=== PATIENT | male | born 1970 | race Caucasian/White ===

== ENCOUNTER 2019-02-01 23:13 | Emergency (ER) | payer BC, OTHER ==
[~2019-02-01] VITALS: Ht 185.4 cm; Wt 84.8 kg
[2019-02-01] MEDS ORDERED: ONDANSETRON 4 MG (ZOFRAN) ORAL DISSOLVE TAB ONE (23:34)
[2019-02-01] MEDS ORDERED: ONDANSETRON 4 MG (ZOFRAN) ORAL DISSOLVE TAB PO STA (23:43)
[2019-02-01] MEDS ORDERED: LIDOCAINE 1% INJ 20 ML 20 ML VIAL INJ ONE (23:45)
--- NOTE | 2019-02-01 23:47 | NUR ---
Patient received 3 stitches
--- NOTE | 2019-02-01 23:48 | ED Upper Extremity ---
General Chief Complaint: Laceration Stated Complaint: R INDEX FINGER LACERATION Nursing Triage Note: Patient states that he was opening a can. He tried to bend the lid of the can with a spoon and the can lid came back and cut his right index finger. Patient states that blood was squirting out of his finger. Nursing Sepsis Screen: No Definite Risk History of Present Illness Date Seen by Provider: Feb 01, 2019 Time Seen by Provider: 23:20 Initial Comments 48 yo male presents with left index finger laceration just prior to arrival. pt was opening a can, went to bend lid of can and came back and cut his index finger. pt last tetanus about 1.5 yrs ago. pt with no other concerns or complaints. Onset: just prior to arrival Allergies and Home Medications Allergies Coded Allergies: No Known Drug Allergies (Unverified , 02/01/19) Patient Home Medication List Home Medication List Reviewed: Yes Review of Systems Constitutional: no symptoms reported Skin: see HPI All Other Systems Reviewed Negative Unless Noted: Yes Past Jdmytge-Ieshzk-Pjnwqt Hx Past Med/Social Hx: Reviewed Nursing Past Med/Soc Hx Patient Social History Alcohol Use: Occasionally Uses Alcohol Beverage of Choice: Beer Recreational Drug Use: No Smoking Status: Current Everyday Smoker Type Used: Cigarettes Recent Foreign Travel: No Contact w/Someone Who Travel: No Recent Infectious Disease Expo: No Recent Hopitalizations: No Physical Abuse: No Sexual Abuse: No Mistreated: No Fear: No Immunizations Up To Date Tetanus Booster (TDap): Less than 5yrs Seasonal Allergies Seasonal Allergies: No Past Medical History Surgeries: No Respiratory: No Cardiac: No Neurological: No Genitourinary: No Gastrointestinal: No Musculoskeletal: No Endocrine: No HEENT: No Cancer: No Psychosocial: No Integumentary: No Physical Exam Vital Signs Vital Signs - First Documented 02/01/19 23:24 Temp 98.0 Pulse 88 Resp 18 B/P (MAP) 111/67 (82) Pulse Ox 97 O2 Delivery Room Air Capillary Refill : Less Than 3 Seconds Height, Weight, BMI Height: 6'1.00" Weight: 187lbs. 0oz. 84.254820jd; BMI Method:Stated General Appearance: WD/WN, no apparent distress Cardiovascular: normal peripheral pulses, regular rate, rhythm Respiratory: chest non-tender, lungs clear Neurologic/Tendon: normal sensation, normal motor functions, normal tendon functions Neurologic/Psychiatric: no motor/sensory deficits, normal mood/affect, oriented x 3 Skin: other (1.2 cm laceration dorsal aspect left index finger ) Procedures/Interventions Wound Location: Upper Extremities (left index finger ) Wound Length (cm): 1.2 Wound's Depth, Shape: linear Wound Explored: clean Anesthesia: 1% Lidocaine Volume Anesthetic (ccs): 4 Wound Debrided: minimal Suture: Plain Suture Size: 5-0 Number of Sutures: 3 Sterile Dressing Applied?: Yes Progress pt tolerated without difficulty Progress/Results/Core Measures Results/Orders My Orders Orders - JOVAN ANTOINE DO Ondansetron Oral Dissolve Tab (Zofran (02/01/19 23:34) Ondansetron Oral Dissolve Tab (Zofran (02/01/19 23:43) Lidocaine 1% Inj 20 Ml (Xylocaine 1% Inj (02/01/19 23:45) Medications Given in ED Current Medications Medications Dose Ordered Sig/[place] Route Start Time Stop Time Status Last Admin Dose Admin Ondansetron HCl 4 mg STK-MED ONCE .ROUTE 02/01/19 23:34 02/01/19 23:40 DC 02/01/19 23:41 4 MG Vital Signs/I&O 02/01/19 02/01/19 23:24 23:52 Temp 98.0 98.0 Pulse 88 88 Resp 18 18 B/P (MAP) 111/67 (82) 111/67 (82) Pulse Ox 97 97 O2 Delivery Room Air Blood Pressure Mean: 82 Departure Impression Primary Impression: Laceration of left index finger w/o foreign body w/o damage to nail Qualified Codes: S61.211A - Laceration without foreign body of left index finger without damage to nail, initial encounter Disposition: 01 HOME, SELF-CARE Condition: Stable Departure-Patient Inst. Referrals: NO,LOCAL PHYSICIAN (PCP/Family) Primary Care Physician Patient Instructions: Wound Care, Laceration Repair With Stitches (DC) Add. Discharge Instructions: do not submerge in water x 24 hrs keep clean and dry clean with warm soapy water return to ER 7-10 days for suture removal All discharge instructions reviewed with patient and/or family. Voiced understanding. JOVAN ANTOINE DO Feb 01, 2019 23:48
[2019-02-01 23:52] VITALS: BP 111/67
== END 2019-02-01 23:52 | disposition home or self-care (01) ==
LOC: ER FS 23:16
DX: S61.211A Laceration without foreign body of left index finger without damage to nail, initial encounter (principal); F17.210 Nicotine dependence, cigarettes, uncomplicated; W26.8XXA Contact with other sharp object(s), not elsewhere classified, initial encounter
CPT/HCPCS: 12031